=== PATIENT | male | born 2000 | race Caucasian/White ===

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

== ENCOUNTER 2020-01-31 09:53 | Emergency (ER) | payer MEDICAID | END 2020-01-31 13:26 | disposition other institution (70) | LOC: ED 09:53 | DX: Z11.8 Encounter for screening for other infectious and parasitic diseases (principal); Z88.1 Allergy status to other antibiotic agents; Z79.899 Other long term (current) drug therapy ==

== ENCOUNTER 2020-02-03 18:23 | Emergency (ER) | payer MEDICAID | END 2020-02-03 19:51 | disposition REB | LOC: ED 18:23 | DX: Z00.00 Encounter for general adult medical examination without abnormal findings (principal); Z88.1 Allergy status to other antibiotic agents; Z79.899 Other long term (current) drug therapy ==

== ENCOUNTER 2020-07-28 10:23 | Emergency (ER) | payer MEDICARE ==
[~2020-07-28] VITALS: Wt 54.8 kg
== END 2020-07-28 16:00 ==
LOC: ED 10:23
DX: R56.9 Unspecified convulsions (principal); Z88.8 Allergy status to other drugs, medicaments and biological substances; Z79.899 Other long term (current) drug therapy; Z98.890 Other specified postprocedural states

== ENCOUNTER 2020-08-22 22:19 | Emergency (ER) | payer MEDICARE ==
[2020-08-22 22:49] LABS: BASO % 0.5 % (0.0-1.0); EOS # 0.1 10*3/uL (0.0-0.4); EOS % 1.3 % (1.0-4.0); HEMATOCRIT 38.1 % (42.0-52.0); LYMPH # 2.4 10*3/uL (1.3-4.4); LYMPH % 39.1 % (27.0-41.0); MEAN CELL VOLUME 95.5 fl (80.0-94.0); MEAN CORPUSCULAR HGB 30.6 pg (27.0-31.0); MEAN PLATELET VOLUME 11.2 fl (9.6-12.3); MONO # 0.5 10*3/uL (0.1-1.0); MONO % 7.4 % (3.0-9.0); NEUT # 3.1 10*3/uL (2.3-7.9); NEUT % 51.5 % (47.0-73.0); PLATELET COUNT AUTOMATED 255 10*3/uL (130-400); RED BLOOD COUNT 3.99 10*6/uL (4.50-5.90); RED CELL DISTRI WIDTH 16.9 % (0-14.5); WHITE BLOOD COUNT 6.1 10*3/uL (4.8-10.8)
[2020-08-22 23:05] LABS: ALBUMIN 3.4 gm/dl (3.1-4.5); ALKALINE PHOSPHATASE 188 U/L (45-117); BUN 12 mg/dl (7-24); CHLORIDE 107 mmol/L (98-107); CREATININE 0.23 mg/dL (0.70-1.30); POTASSIUM 3.9 mmol/L (3.5-5.1); SGOT/AST 8 IU/L (3-35); SGPT/ALT 12 U/L (12-78); SODIUM 140 mmol/L (136-145); TOTAL PROTEIN 8.4 gm/dL (6.4-8.2)
== END 2020-08-23 01:39 ==
LOC: ED 22:19
PROVIDERS: Emergency Medicine
DX: R56.9 Unspecified convulsions (principal); K21.9 Gastro-esophageal reflux disease without esophagitis; E03.9 Hypothyroidism, unspecified; Z88.8 Allergy status to other drugs, medicaments and biological substances; Z79.899 Other long term (current) drug therapy; Z98.890 Other specified postprocedural states

== ENCOUNTER 2021-01-30 14:35 | Emergency (ER) | payer MEDICARE ==
[~2021-01-30] VITALS: Wt 47.2 kg
[2021-01-30 15:50] LABS: BASO % 0.3 % (0.0-1.0); EOS % 0.6 % (1.0-4.0); LYMPH # 1.2 10*3/uL (1.3-4.4); LYMPH % 32.4 % (27.0-41.0); MEAN CELL VOLUME 105.6 fl (80.0-94.0); MEAN CORPUSCULAR HGB 30.7 pg (27.0-31.0); MEAN CORPUSCULAR HGB CONC 29.1 g/dl (33.0-37.0); MEAN PLATELET VOLUME 10.3 fl (9.6-12.3); MONO # 0.2 10*3/uL (0.1-1.0); MONO % 5.9 % (3.0-9.0); NEUT # 2.2 10*3/uL (2.3-7.9); NEUT % 60.8 % (47.0-73.0); PLATELET COUNT AUTOMATED 129 10*3/uL (130-400); RED BLOOD COUNT 3.03 10*6/uL (4.50-5.90); RED CELL DISTRI WIDTH 18.7 % (0-14.5); WHITE BLOOD COUNT 3.6 10*3/uL (4.8-10.8)
[2021-01-30 16:06] LABS: ALBUMIN 2.9 gm/dl (3.1-4.5); ALKALINE PHOSPHATASE 152 U/L (45-117); BUN 10 mg/dl (7-24); CHLORIDE 106 mmol/L (98-107); CREATININE 0.24 mg/dL (0.70-1.30); POTASSIUM 3.9 mmol/L (3.5-5.1); SGOT/AST 7 IU/L (3-35); SGPT/ALT 17 U/L (12-78); SODIUM 138 mmol/L (136-145); TOTAL PROTEIN 8.3 gm/dL (6.4-8.2)
[2021-01-30 16:09] LABS: BILIRUBIN Negative (Negative); BLOOD Negative (Negative); CLARITY Clear (Clear); COLOR Yellow (Yellow); GLUCOSE Negative (Negative); KETONE Negative (Negative); LEUKO ESTERASE Negative (Negative); NITRITE Negative (Negative)
[2021-01-30 16:18] LABS: CARBAMAZEPINE (TEGRETOL) TOTAL 9.4 ug/ml (4-12); VALPROIC ACID (DEPAKENE) 65.4 ug/ml (50-100)
[2021-01-30 16:19] LABS: BACTERIA TRACE; RBC 0-2 rbc/hpf (0-2)
== END 2021-01-30 19:10 ==
LOC: ED 14:35
PROVIDERS: Emergency Medicine
DX: G40.909 Epilepsy, unspecified, not intractable, without status epilepticus (principal); E03.9 Hypothyroidism, unspecified; K21.9 Gastro-esophageal reflux disease without esophagitis; I10 Essential (primary) hypertension; Z88.1 Allergy status to other antibiotic agents; Z79.899 Other long term (current) drug therapy

== ENCOUNTER 2021-04-19 04:18 | Inpatient (IN) | payer MEDICARE ==
[2021-04-19] VITALS (9 sets, daily range): BP systolic 100–128; BP diastolic 60–87
[~2021-04-19] VITALS: Ht 139.7 cm; Wt 49.0 kg
[2021-04-19 04:50] LABS: HEMATOCRIT 32.7 % (42.0-52.0); LYMPH # 1.6 10*3/uL (1.3-4.4); LYMPH % 53.9 % (27.0-41.0); MEAN CELL VOLUME 92.1 fl (80.0-94.0); MEAN CORPUSCULAR HGB 30.7 pg (27.0-31.0); MEAN CORPUSCULAR HGB CONC 33.3 g/dl (33.0-37.0); MEAN PLATELET VOLUME 10.7 fl (9.6-12.3); MONO # 0.2 10*3/uL (0.1-1.0); MONO % 7.8 % (3.0-9.0); NEUT # 1.1 10*3/uL (2.3-7.9); NEUT % 38.3 % (47.0-73.0); PLATELET COUNT AUTOMATED 93 10*3/uL (130-400); RED BLOOD COUNT 3.55 10*6/uL (4.50-5.90); RED CELL DISTRI WIDTH 17.8 % (0-14.5)
[2021-04-19 05:04] LABS: ALBUMIN 2.9 gm/dl (3.1-4.5); ALKALINE PHOSPHATASE 115 U/L (45-117); BUN 9 mg/dl (7-24); CHLORIDE 99 mmol/L (98-107); POTASSIUM 3.6 mmol/L (3.5-5.1); SGOT/AST 9 IU/L (3-35); SGPT/ALT 11 U/L (12-78); SODIUM 131 mmol/L (136-145); TOTAL PROTEIN 8.2 gm/dL (6.4-8.2)
[2021-04-19] MEDS ORDERED: CLOBAZAM2.5 MG/1 M PO (13:36)
[2021-04-19] MEDS ORDERED: CLORAZEPATE3.75 MG PO (13:38)
[2021-04-19] MEDS ORDERED: ATIVAN2 MG/1 ML IM (13:42)
[2021-04-19] MEDS ORDERED: THEREMS-M TABL1 EACH PO (13:44)
[2021-04-19] MEDS ORDERED: LUMIFY2.5 ML OP (13:54)
[2021-04-19] MEDS ORDERED: REFRESH P.M. O3.5 GM OP (13:57)
[2021-04-19] MEDS ORDERED: BISACODYL10 MG R (14:06)
[2021-04-19] MEDS ORDERED: GLUCAGON EMERGEN1 M1 IJ (14:20)
[2021-04-20] VITALS: BP 118/82
[2021-04-20 04:00] VITALS: BP 111/79
[2021-04-20 05:36] LABS: BUN 11 mg/dl (7-24); CHLORIDE 104 mmol/L (98-107); CREATININE 0.16 mg/dL (0.70-1.30); POTASSIUM 3.8 mmol/L (3.5-5.1); SODIUM 136 mmol/L (136-145)
[2021-04-20 06:12] LABS: BASO % 0.4 % (0.0-1.0); HEMATOCRIT 34.5 % (42.0-52.0); LYMPH # 1.3 10*3/uL (1.3-4.4); LYMPH % 49.3 % (27.0-41.0); MEAN CELL VOLUME 93.8 fl (80.0-94.0); MEAN CORPUSCULAR HGB 30.4 pg (27.0-31.0); MEAN CORPUSCULAR HGB CONC 32.5 g/dl (33.0-37.0); MEAN PLATELET VOLUME 11.1 fl (9.6-12.3); MONO # 0.3 10*3/uL (0.1-1.0); MONO % 10.7 % (3.0-9.0); NEUT # 1.1 10*3/uL (2.3-7.9); NEUT % 39.6 % (47.0-73.0); PLATELET COUNT AUTOMATED 96 10*3/uL (130-400); RED BLOOD COUNT 3.68 10*6/uL (4.50-5.90); RED CELL DISTRI WIDTH 17.8 % (0-14.5); WHITE BLOOD COUNT 2.7 10*3/uL (4.8-10.8)
[2021-04-20 08:00] VITALS: BP 117/88
[2021-04-20 12:00] VITALS: BP 123/85
[2021-04-20 16:00] VITALS: BP 115/80; BP 117/82
[2021-04-20 20:00] VITALS: BP 101/75
[2021-04-21] VITALS: BP 116/74
[2021-04-21 04:00] VITALS: BP 114/75
[2021-04-21 06:36] LABS: BUN 13 mg/dl (7-24); CHLORIDE 106 mmol/L (98-107); CREATININE 0.27 mg/dL (0.70-1.30); POTASSIUM 4.1 mmol/L (3.5-5.1); SODIUM 137 mmol/L (136-145)
[2021-04-21 07:01] LABS: BASO % 0.4 % (0.0-1.0); EOS % 0.2 % (1.0-4.0); LYMPH # 1.3 10*3/uL (1.3-4.4); LYMPH % 23.2 % (27.0-41.0); MEAN PLATELET VOLUME 11.5 fl (9.6-12.3); MONO # 0.7 10*3/uL (0.1-1.0); MONO % 11.6 % (3.0-9.0); NEUT # 3.7 10*3/uL (2.3-7.9); NEUT % 64.1 % (47.0-73.0); PLATELET COUNT AUTOMATED 124 10*3/uL (130-400); RED BLOOD COUNT 3.61 10*6/uL (4.50-5.90); RED CELL DISTRI WIDTH 17.9 % (0-14.5); WHITE BLOOD COUNT 5.7 10*3/uL (4.8-10.8)
[2021-04-21 07:02] LABS: MEAN CELL VOLUME 88.6 fl (80.0-94.0)
[2021-04-21 08:00] VITALS: BP 108/84
[2021-04-21 12:00] VITALS: BP 101/66
[2021-04-21 16:00] VITALS: BP 115/79
[2021-04-21 20:00] VITALS: BP 96/60
[2021-04-22] VITALS: BP 105/58
[2021-04-22 04:00] VITALS: BP 111/67
[2021-04-22 06:25] LABS: CHLORIDE 107 mmol/L (98-107); POTASSIUM 3.3 mmol/L (3.5-5.1); SODIUM 140 mmol/L (136-145)
[2021-04-22 06:40] LABS: BASO % 0.2 % (0.0-1.0); HEMATOCRIT 29.8 % (42.0-52.0); LYMPH # 2.4 10*3/uL (1.3-4.4); LYMPH % 42.8 % (27.0-41.0); MEAN CORPUSCULAR HGB 30.7 pg (27.0-31.0); MEAN CORPUSCULAR HGB CONC 32.6 g/dl (33.0-37.0); MEAN PLATELET VOLUME 11.1 fl (9.6-12.3); MONO # 0.7 10*3/uL (0.1-1.0); MONO % 12.7 % (3.0-9.0); NEUT # 2.5 10*3/uL (2.3-7.9); NEUT % 44.1 % (47.0-73.0); PLATELET COUNT AUTOMATED 126 10*3/uL (130-400); RED BLOOD COUNT 3.16 10*6/uL (4.50-5.90); RED CELL DISTRI WIDTH 18.5 % (0-14.5); WHITE BLOOD COUNT 5.6 10*3/uL (4.8-10.8)
[2021-04-22 06:44] LABS: BUN 13 mg/dl (7-24); CARBAMAZEPINE (TEGRETOL) TOTAL 11.7 ug/ml (4-12); CREATININE 0.24 mg/dL (0.70-1.30); VALPROIC ACID (DEPAKENE) 98.7 ug/ml (50-100)
[2021-04-22 07:13] LABS: MEAN CELL VOLUME 94.3 fl (80.0-94.0)
[2021-04-22 08:00] VITALS: BP 103/65
[2021-04-22 12:00] VITALS: BP 89/47
[2021-04-22 16:00] VITALS: BP 104/66
[2021-04-22 20:00] VITALS: BP 88/53
[2021-04-23] VITALS: BP 95/61
[2021-04-23 04:00] VITALS: BP 103/50
[2021-04-23 09:00] VITALS: BP 107/64
[2021-04-23 09:47] LABS: BASO % 0.3 % (0.0-1.0); EOS # 0.1 10*3/uL (0.0-0.4); EOS % 0.9 % (1.0-4.0); HEMATOCRIT 29.6 % (42.0-52.0); LYMPH # 2.7 10*3/uL (1.3-4.4); LYMPH % 46.6 % (27.0-41.0); MEAN CELL VOLUME 95.5 fl (80.0-94.0); MEAN CORPUSCULAR HGB CONC 32.4 g/dl (33.0-37.0); MEAN PLATELET VOLUME 11.4 fl (9.6-12.3); MONO # 0.8 10*3/uL (0.1-1.0); MONO % 13.5 % (3.0-9.0); NEUT # 2.3 10*3/uL (2.3-7.9); NEUT % 38.5 % (47.0-73.0); PLATELET COUNT AUTOMATED 116 10*3/uL (130-400); WHITE BLOOD COUNT 5.8 10*3/uL (4.8-10.8)
[2021-04-23 11:41] VITALS: BP 93/53
[2021-04-23 16:00] VITALS: BP 102/58
[2021-04-23 20:00] VITALS: BP 105/60
[2021-04-24] VITALS: BP 110/73
[2021-04-24 04:00] VITALS: BP 98/62
[2021-04-24 06:57] LABS: BASO % 0.2 % (0.0-1.0); EOS # 0.1 10*3/uL (0.0-0.4); EOS % 1.1 % (1.0-4.0); HEMATOCRIT 29.1 % (42.0-52.0); LYMPH # 1.7 10*3/uL (1.3-4.4); LYMPH % 36.6 % (27.0-41.0); MEAN CORPUSCULAR HGB 30.7 pg (27.0-31.0); MEAN CORPUSCULAR HGB CONC 31.6 g/dl (33.0-37.0); MEAN PLATELET VOLUME 11.5 fl (9.6-12.3); MONO # 0.3 10*3/uL (0.1-1.0); MONO % 6.9 % (3.0-9.0); NEUT # 2.5 10*3/uL (2.3-7.9); PLATELET COUNT AUTOMATED 123 10*3/uL (130-400); RED CELL DISTRI WIDTH 19.1 % (0-14.5); WHITE BLOOD COUNT 4.6 10*3/uL (4.8-10.8)
[2021-04-24 07:10] LABS: BUN 11 mg/dl (7-24); CHLORIDE 109 mmol/L (98-107); CREATININE 0.31 mg/dL (0.70-1.30); POTASSIUM 3.8 mmol/L (3.5-5.1); SODIUM 139 mmol/L (136-145)
[2021-04-24 08:00] VITALS: BP 105/68
[2021-04-24 12:00] VITALS: BP 109/65
[2021-04-24 16:00] VITALS: BP 107/67
[2021-04-24 20:00] VITALS: BP 100/53
[2021-04-25] VITALS: BP 91/55
[2021-04-25 04:00] VITALS: BP 101/56
[2021-04-25 04:50] LABS: BASO % 0.4 % (0.0-1.0); EOS # 0.1 10*3/uL (0.0-0.4); EOS % 1.6 % (1.0-4.0); HEMATOCRIT 28.9 % (42.0-52.0); LYMPH # 2.4 10*3/uL (1.3-4.4); LYMPH % 52.3 % (27.0-41.0); MEAN CELL VOLUME 94.1 fl (80.0-94.0); MEAN CORPUSCULAR HGB 31.3 pg (27.0-31.0); MEAN CORPUSCULAR HGB CONC 33.2 g/dl (33.0-37.0); MONO # 0.5 10*3/uL (0.1-1.0); NEUT # 1.6 10*3/uL (2.3-7.9); NEUT % 35.5 % (47.0-73.0); PLATELET COUNT AUTOMATED 108 10*3/uL (130-400); RED BLOOD COUNT 3.07 10*6/uL (4.50-5.90); RED CELL DISTRI WIDTH 18.8 % (0-14.5); WHITE BLOOD COUNT 4.5 10*3/uL (4.8-10.8)
[2021-04-25 05:19] LABS: BUN 12 mg/dl (7-24); CHLORIDE 111 mmol/L (98-107); CREATININE 0.19 mg/dL (0.70-1.30); SODIUM 140 mmol/L (136-145)
[2021-04-25 05:31] LABS: POTASSIUM 4.8 mmol/L (3.5-5.1)
[2021-04-25 08:00] VITALS: BP 94/41
[2021-04-25 12:00] VITALS: BP 114/71; BP 147/82
[2021-04-25 16:00] VITALS: BP 101/49
[2021-04-25 20:00] VITALS: BP 102/48
[2021-04-26] VITALS: BP 100/55
[2021-04-26 04:00] VITALS: BP 98/53
[2021-04-26 06:51] LABS: BUN 11 mg/dl (7-24); CHLORIDE 111 mmol/L (98-107); CREATININE 0.23 mg/dL (0.70-1.30); SODIUM 141 mmol/L (136-145)
[2021-04-26 06:53] LABS: POTASSIUM 3.7 mmol/L (3.5-5.1)
[2021-04-26 07:04] LABS: BASO % 0.4 % (0.0-1.0); EOS # 0.1 10*3/uL (0.0-0.4); EOS % 1.9 % (1.0-4.0); HEMATOCRIT 27.7 % (42.0-52.0); LYMPH # 2.3 10*3/uL (1.3-4.4); LYMPH % 42.3 % (27.0-41.0); MEAN CORPUSCULAR HGB 30.5 pg (27.0-31.0); MEAN CORPUSCULAR HGB CONC 30.7 g/dl (33.0-37.0); MEAN PLATELET VOLUME 11.4 fl (9.6-12.3); MONO # 0.7 10*3/uL (0.1-1.0); MONO % 13.4 % (3.0-9.0); NEUT # 2.3 10*3/uL (2.3-7.9); NEUT % 41.8 % (47.0-73.0); RED BLOOD COUNT 2.79 10*6/uL (4.50-5.90); RED CELL DISTRI WIDTH 19.1 % (0-14.5); WHITE BLOOD COUNT 5.4 10*3/uL (4.8-10.8)
[2021-04-26 07:27] LABS: MEAN CELL VOLUME 99.3 fl (80.0-94.0); PLATELET COUNT AUTOMATED 142 10*3/uL (130-400)
[2021-04-26 08:00] VITALS: BP 112/66
[2021-04-26 12:00] VITALS: BP 109/69
[2021-04-26 16:00] VITALS: BP 104/59
[2021-04-26 20:00] VITALS: BP 100/59
[2021-04-27] VITALS: BP 101/48
[2021-04-27 04:00] VITALS: BP 96/50
[2021-04-27 06:11] LABS: BUN 11 mg/dl (7-24); CHLORIDE 114 mmol/L (98-107); CREATININE 0.28 mg/dL (0.70-1.30); SODIUM 141 mmol/L (136-145)
[2021-04-27 06:15] LABS: POTASSIUM 5.6 mmol/L (3.5-5.1)
[2021-04-27 06:19] LABS: BASO % 0.7 % (0.0-1.0); EOS # 0.1 10*3/uL (0.0-0.4); HEMATOCRIT 26.3 % (42.0-52.0); LYMPH # 2.4 10*3/uL (1.3-4.4); LYMPH % 55.5 % (27.0-41.0); MEAN CORPUSCULAR HGB 31.1 pg (27.0-31.0); MEAN CORPUSCULAR HGB CONC 33.1 g/dl (33.0-37.0); MEAN PLATELET VOLUME 11.5 fl (9.6-12.3); MONO # 0.5 10*3/uL (0.1-1.0); MONO % 11.8 % (3.0-9.0); NEUT # 1.2 10*3/uL (2.3-7.9); NEUT % 28.1 % (47.0-73.0); NUCLEATED RED BLOOD CELL 0.5 % (0.0-0.0); PLATELET COUNT AUTOMATED 147 10*3/uL (130-400); RED CELL DISTRI WIDTH 18.9 % (0-14.5); WHITE BLOOD COUNT 4.3 10*3/uL (4.8-10.8)
[2021-04-27 06:20] LABS: MEAN CELL VOLUME 93.9 fl (80.0-94.0)
[2021-04-27 07:57] VITALS: BP 106/57
[2021-04-27 12:42] VITALS: BP 103/58
[2021-04-27 16:00] VITALS: BP 107/50
[2021-04-27 20:00] VITALS: BP 116/56
[2021-04-28] VITALS: BP 107/57
[2021-04-28 04:00] VITALS: BP 92/59
[2021-04-28 06:01] LABS: ALBUMIN 2.8 gm/dl (3.1-4.5); ALKALINE PHOSPHATASE 109 U/L (45-117); BUN 10 mg/dl (7-24); CHLORIDE 109 mmol/L (98-107); CREATININE 0.22 mg/dL (0.70-1.30); SGOT/AST 21 IU/L (3-35); SGPT/ALT 14 U/L (12-78); SODIUM 139 mmol/L (136-145); TOTAL PROTEIN 8.1 gm/dL (6.4-8.2)
[2021-04-28 06:12] LABS: POTASSIUM 4.2 mmol/L (3.5-5.1)
[2021-04-28 06:34] LABS: MEAN CELL VOLUME 96.6 fl (80.0-94.0); MEAN CORPUSCULAR HGB 30.7 pg (27.0-31.0); MEAN CORPUSCULAR HGB CONC 31.8 g/dl (33.0-37.0); MEAN PLATELET VOLUME 11.4 fl (9.6-12.3); PLATELET COUNT AUTOMATED 164 10*3/uL (130-400); RED CELL DISTRI WIDTH 18.9 % (0-14.5); WHITE BLOOD COUNT 4.7 10*3/uL (4.8-10.8)
[2021-04-28 07:32] LABS: TOTAL CELLS COUNTED 100 #CELLS
[2021-04-28 07:33] LABS: PLATELET SUFFICIENCY NORMAL (NORMAL); POLYCHROMASIA SLIGHT; ROULEAUX SLIGHT
[2021-04-28 07:34] LABS: BURR CELLS FEW
[2021-04-28 08:00] VITALS: BP 100/57
[2021-04-28 13:00] VITALS: BP 115/64
[2021-04-28 16:00] VITALS: BP 97/66
[2021-04-28 20:00] VITALS: BP 100/53
[2021-04-29] VITALS: BP 97/51
[2021-04-29 04:00] VITALS: BP 97/56
== END 2021-04-29 07:35 | DRG 870 ==
LOC: ED 04:18 → ICCU 06:07 → EDHOLD 06:07 → ICCU 15:45
PROVIDERS: Hospitalist; Internal Medicine; ADMIT Internal Medicine; ATTEND Internal Medicine
PROC: 5A1955Z Respiratory Ventilation, Greater than 96 Consecutive Hours (ICD-10-PCS; 2021-04-19)
PROC: 05HM33Z Insertion of Infusion Device into Right Internal Jugular Vein, Percutaneous Approach (ICD-10-PCS; principal; 2021-04-28)
PROC: 05H633Z Insertion of Infusion Device into Left Subclavian Vein, Percutaneous Approach (ICD-10-PCS; 2021-04-28)
DX: A41.9 Sepsis, unspecified organism (principal); J69.0 Pneumonitis due to inhalation of food and vomit; J96.01 Acute respiratory failure with hypoxia; G80.0 Spastic quadriplegic cerebral palsy; Q04.0 Congenital malformations of corpus callosum; E87.1 Hypo-osmolality and hyponatremia; E27.40 Unspecified adrenocortical insufficiency; E44.0 Moderate protein-calorie malnutrition; Q74.3 Arthrogryposis multiplex congenita; Z99.11 Dependence on respirator [ventilator] status; J98.11 Atelectasis; Z66 Do not resuscitate; R65.20 Severe sepsis without septic shock; Z20.822 Contact with and (suspected) exposure to COVID-19; D64.9 Anemia, unspecified; G80.9 Cerebral palsy, unspecified; J30.2 Other seasonal allergic rhinitis; K59.09 Other constipation; K21.9 Gastro-esophageal reflux disease without esophagitis; G40.909 Epilepsy, unspecified, not intractable, without status epilepticus; G93.89 Other specified disorders of brain; E03.9 Hypothyroidism, unspecified; M62.49 Contracture of muscle, multiple sites; I10 Essential (primary) hypertension; Z51.5 Encounter for palliative care; Z93.1 Gastrostomy status; Z88.1 Allergy status to other antibiotic agents; Z93.0 Tracheostomy status; Z79.1 Long term (current) use of non-steroidal anti-inflammatories (NSAID); Z79.899 Other long term (current) drug therapy; Z68.25 Body mass index [BMI] 25.0-25.9, adult